=== PATIENT | female | born 1950 | race Caucasian/White ===

== ENCOUNTER 2020-11-29 13:48 | Outpatient (CLI) | payer MEDICARE, SELFPAY ==
[2020-11-29] MEDS: Acetaminophen 325 MG Tablet 650 MG PO (14:12)
[2020-11-29] MEDS: 0.9% Saline Lock 10 ML Syringe IV (14:12)
[2020-11-29 14:15] VITALS: BP 138/75; PULSE 102; RESP 16; TEMP 38.3; O2SAT 91; BMI 35.9
[2020-11-29 15:11] VITALS: BP 137/74; PULSE 91; RESP 20; TEMP 37.3; O2SAT 88
[2020-11-29 15:15] VITALS: BP 135/70; PULSE 90; RESP 20; TEMP 37.3; O2SAT 88
== END 2020-11-29 15:15 | disposition home or self-care (01) ==
LOC: MS3OUT 13:50 → MS3 13:52
PROVIDERS: Referring Provider Nurse Practitioner Adult Health; Visit Provider Nurse Practitioner Adult Health
DX: U07.1 COVID-19 (principal)
CPT/HCPCS: J7050; M0243; A4216; Q0244

== ENCOUNTER 2020-11-29 15:27 | Emergency (ER) | payer MEDICARE, OTHER, SELFPAY ==
[2020-11-29 15:28] VITALS: BP 124/82; PULSE 93; RESP 24; TEMP 37.5; O2SAT 88; BMI 35.9
--- NOTE | 2020-11-29 15:51 | CT_ITS ---
STUDY: CTA CHEST REASON FOR EXAM: Female, 70 years old. Acute substernal chest pain RADIATION DOSAGE (If Supplied By Facility): CTDIvol = ( 11.34 ) mGy, DLP = ( 456.63 ) mGycm TECHNIQUE: The examination was performed with the intravenous administration of IV 100mL Isovue-370. Post-processing of the angiographic images was performed, with multiplanar reformation and 3D reconstruction. Individualized dose optimization techniques were used for this CT. COMPARISON: None. FINDINGS: There is enlargement of the right thyroid lobe. Normal enhancement of the main pulmonary artery and right and left pulmonary arteries. Normal enhancement of the bilateral peripheral pulmonary arteries. There is no demonstrated pulmonary embolism. Normal thoracic aorta and visualized great vessels. There is no demonstrated aortic dissection. Normal heart and pericardium. Normal mediastinum. Normal hilar regions. There is peribronchial thickening. The lungs are well expanded. Chronic interstitial changes in both lung hubbard with diffuse interstitial and airspace opacifications predominantly in the periphery of both lung hubbard. This pattern of opacification is most consistent with and suspicious for Covid pneumonia. Normal pleura. Normal chest wall structures. There are degenerative changes of thoracic spine. Limited cuts through the upper abdomen show simple hepatic and right renal cysts, no specific follow-up needed CT/CTA Chest W/WO Contrast IMPRESSION: No demonstrated PE, or thoracic aortic aneurysm or dissection Diffuse interstitial and airspace opacifications predominantly in the periphery of both lung hubbard suspicious for Covid. Chronic bronchitis No suspicious adenopathy No pleural or pericardial effusions Degenerative bony changes Electronically Signed: Jaskaran Kim MD at 17:24 EDT , Service support ,
[2020-11-29 16:18] LABS: Absolute Lymphocyte Count 0.69 X10^3/uL (0.83-4.51); Absolute Neutrophil Count 3.1 X10^3/uL (2.0-7.7); Basophil# 0.02 X10^3/uL; Basophil% 0.5 % (0-1); Hematocrit 43.6 % (37-47); Hemoglobin 14.6 g/dL (12.0-15.0); Lymphocyte # 0.69 X10^3/ul (0.83-4.51); Mean Corp Hgb Conc 33.5 g/dL (32-36); Mean Corpuscular Volume 86.7 fL (81-99); Mean Platelet Vol. 10.1 fl (6.2-12.0); Monocyte# 0.23 X10^3/uL; Monocyte% 5.7 % (0-10); NRBC Flagged by Analyzer 0 % (0-5); Neutrophil # 3.11 X10^3/uL (2.7-7.7); Neutrophil % 76.6 % (47-70); Platelet Count 158 K/mm3 (150-450); RBC Distribution Width CV 13.1 % (11.6-14.6); Red Blood Count 5.03 M/mm3 (4.2-5.4); White Blood Count 4.1 K/mm3 (4.4-11.0)
[2020-11-29 16:23] VITALS: O2SAT 92
[2020-11-29 16:51] LABS: Anion Gap 8 (5-15); BUN 10 mg/dL (7-18); BUN/Creat Ratio 12.9 RATIO (10-20); Calcium,Total 8.4 mg/dL (8.5-10.1); Chloride 100 mmol/L (98-107); Creatinine, Serum 0.78 mg/dL (0.55-1.02); EST Glomerular Filtration Rate 78 mL/min (>60); Est Glom Filt Rate - Afr Amer 94 mL/min (>60); Estimated Creatinine Clearance 40.07 ml/min; Glucose 123 mg/dL (74-106); Potassium 3.2 mmol/L (3.5-5.1); Sodium Level 137 mmol/L (136-145)
--- NOTE | 2020-11-29 17:08 | ED.VIS.DYS ---
HPI History of Present Illness Chief Complaint: Shortness of Breath Informant: patient Narrative Narrative: Patient sent down from [facility] for hypoxia pulse ox 88%. Diagnosed yesterday in [place]. He reports having symptoms for a week. States nonproductive cough headaches. Denies fevers. Denies vomiting or diarrhea. Denies loss of taste or smell. Patient not vaccinated. Denies sick contacts. No Covid infections in the past. Denies any history of asthma or COPD. Denies tobacco history. States history of cardiac stents few years ago. Takes medications for blood pressure and cholesterol. Denies diabetes. Prior similar symptoms: No PFSH PFSH Medical History (Updated 11/29/20 @ 18:[address] Huy Arredondo DO) Acute asthma Heart attack Hypertension Home Medications dexamethasone [Decadron] 6 mg PO DAILY #9 tab 11/29/20 [Rx Last Taken Unknown] Allergy/AdvReac Type Severity Reaction Status Date / Time piroxicam [From Feldene] Allergy Severe throat Verified 11/29/20 15:31 closing nitrofurantoin Allergy Intermediate lightheaded Verified 11/29/20 15:31 [From Macrodantin] silicone Allergy Intermediate burning Verified 11/29/20 15:31 skin Sulfa (Sulfonamide Allergy Intermediate bruising Verified 11/29/20 15:31 Antibiotics) Tetracyclines Allergy Intermediate abdominal Verified 11/29/20 15:31 pain Penicillins AdvReac Mild heartburn Verified 11/29/20 15:31 Surgical History (Updated 11/29/20 @ 17:35 by Radha Mcfarland) History of tubal ligation Hx of tonsillectomy Social History Smoking Status: Never smoker ROS ROS ED Constitutional Constitutional ED: Denies chills, fever(s) or sweats Eyes Eyes: Denies change in vision ENT ENT ED: Denies dysphagia or sore throat Cardiovascular Cardiovascular: Denies chest pain, leg edema, palpitations or racing heartbeat Respiratory/Chest Respiratory/Chest: Reports cough and dyspnea; Denies dyspnea on exertion Gastrointestinal Gastrointestinal: Denies abdominal pain, diarrhea, nausea or vomiting Genitourinary Genitourinary ED: Denies dysuria, hematuria or urinary frequency Musculoskeletal Musculoskeletal: Denies back pain, extremity pain or neck pain Integumentary Denies rash or wounds Neurologic Neurologic: Denies headache(s), paresthesias or weakness EXAM Physical Exam Const Vital Signs: 11/29/20 15:28 11/29/20 16:23 11/29/20 18:48 Temperature 99.5 F H Temperature Source Temporal Pulse Rate 93 98 Respiratory Rate 24 H 16 Respiratory Effort Normal Non-Labored Respiratory Depth Normal Respiratory Pattern Normal Blood Pressure 124/82 H Blood Pressure Mean 96 Pulse Ox 88 94 Pulse Ox [AMBULATING on Room Air] Pulse Ox [AMBULATING with Oxygen #1] Pulse Ox [At REST on Room Air] Oxygen Delivery Method Room Air Nasal Cannula Nasal Cannula Oxygen Flow Rate (L/min) 2 2 Oxygen Flow Rate (L/min) [AMBULATING with Oxygen #1] 11/29/20 19:12 11/29/20 20:24 Temperature Temperature Source Pulse Rate 79 Respiratory Rate 22 H Respiratory Effort Respiratory Depth Respiratory Pattern Blood Pressure 130/60 H Blood Pressure Mean Pulse Ox 93 Pulse Ox [AMBULATING on Room Air] 85 Pulse Ox [AMBULATING with Oxygen #1] 93 Pulse Ox [At REST on Room Air] 88 Oxygen Delivery Method Oxygen Flow Rate (L/min) Oxygen Flow Rate (L/min) [AMBULATING with Oxygen #1] 2 Positive well nourished and well developed Constitutional Narrative: Currently on nasal cannula 2 L 96%. No respiratory distress. General Appearance ED: well developed and NAD HEENT Reports moist mucous membranes normocephalic and atraumatic Eyes PERRL, EOMs intact bilaterally and conjunctivae normal General Eye ED: Yes normal appearance of both eyes Neck no lymphadenopathy and supple General: Negative for tenderness Chest Wall Chest: Negative for tenderness Resp normal respiratory effort and normal air movement Effort and Inspection: symmetric chest movement; Negative for respiratory distress Cardio regular rate, regular rhythm and no murmurs Peripheral Pulses: pulses 2+ throughout GI normal to inspection, nondistended, normoactive bowel sounds and non-tender Palpation: Negative for guarding or rebound tenderness present Back/Spine no CVA tenderness and no thoracic nor lumbar tenderness Extremity normal to inspection General Extremety ED: Negative for edema or tenderness General Extremity: Negative for edema Neuro oriented x3 and no sensory deficits noted Sensorium / Orientation: awake and alert Skin no rashes or lesions noted and no wounds MDM MDM MDM Narrative Medical decision making narrative: Patient nontoxic states very mild dyspnea nonproductive cough. She is hypoxic 88%. She is Covid positive, with cardiac stent history, will rule out PE due to hypoxia. Patient started on Decadron. Currently on day 7 of symptoms. Positive testing from forms that were scanned into the system from [facility]. This was results from yesterday. Labs are stable, except noted potassium 3.2. This was orally replaced. CT chest obtained negative for PE. There is Covid pneumonia changes. She is stable on 2 L of oxygen. She is started on Decadron. Patient would like to go home. Patient is set up for oxygen. During process of setting oxygen, hospitalist did call seen the patient was hypoxic, discussed that she would be a candidate for antiviral treatment and that would have to be done as an inpatient. I discussed this with the patient, she declines antiviral treatment. Continue plan of care with oxygen with outpatient follow-up. Discussed return precautions with patient. Lab Data Labs: Laboratory Results - last 24 hr 11/29/20 11/29/20 16:12 16:12 WBC 4.1 L RBC 5.03 Hgb 14.6 Hct 43.6 MCV 86.7 MCH 29.0 MCHC 33.5 RDW Std Deviation 41.0 RDW Coeff of Enoch 13.1 Plt Count 158 MPV 10.1 Immature Gran % (Auto) 0.200 Neut % (Auto) 76.6 H Lymph % (Auto) 17.0 L Hopkins % (Auto) 5.7 Eos % (Auto) 0.0 Baso % (Auto) 0.5 Absolute Neuts (auto) 3.1 Absolute Lymphs (auto) 0.69 L Nucleated RBC % 0 Sodium 137 Potassium 3.2 L Chloride 100 Carbon Dioxide 29.0 Anion Gap 8 BUN 10 Creatinine 0.78 Estim Creat Clear Calc 40.07 Est GFR (MDRD) Af Amer 94 Est GFR (MDRD) Non-Af 78 BUN/Creatinine Ratio 12.9 Glucose 123 H Calcium 8.4 L Radiography Diagnostic Testing: Clinical Impression(s) from Imaging Studies Chest CTA 11/29/20 15:51 IMPRESSION: No demonstrated PE, or thoracic aortic aneurysm or dissection Diffuse interstitial and airspace opacifications predominantly in the periphery of both lung hubbard suspicious for Covid. Chronic bronchitis No suspicious adenopathy No pleural or pericardial effusions Degenerative bony changes Electronically Signed: Jaskaran Kim MD at 17:24 EDT , Service support , Discharge Plan Triage Chief Complaint: Shortness of Breath ED Provider: Huy Arredondo Dx/Rx/DC Orders Clinical Impression: COVID-19, Hypoxia, Hypokalemia Instructions: Coronavirus Disease 2019 (COVID-19): Caring for Yourself or Others Prescriptions: New dexamethasone [Decadron] 6 mg tablet 6 mg PO DAILY Qty: 9 RF: 0 Primary Care Provider: Martha Calix NP Referrals: Martha Calix NP, DEPARTMENT HELPER-C [Primary Care Provider] - Activity Restrictions/Additional Instructions: Take steroids as prescribed. Continue your home oxygen. Monitor your pulse ox if needing more than 4 L of oxygen and pulse ox is less than 88 return for reevaluation. Disposition Disposition: Home, Self Care Discharge Date/Time: 11/29/20 20:24
[2020-11-29] MEDS: dexAMETHasone 4 MG Tablet 6 MG PO (18:03)
[2020-11-29] MEDS: Potassium Chloride Oral Tablet 20 MEQ 40 MEQ PO (18:04)
[2020-11-29 18:48] VITALS: PULSE 98; RESP 16; O2SAT 94
--- NOTE | 2020-11-29 18:51 | HP.PCM.HOS_ITS ---
HPI - General General Date of Admission: 11/29/20 Date of Service: 11/29/20 Chief Complaint: Worsening dyspnea, hypoxia, COVID +, sent from [facility] clinic. HPI Narrative The patient is a 70 y/o F w/ PMHx: HTN, Obesity, Asthma, CAD s/p PCI with COVID sxs onset 11/20/20 including fatigue, malaise, decreased intake, cough, dyspnea with positive COVID-19 testing on 11/28/20 in [place], unvaccinated status, who presents to the [facility] ED on 11/29/20 following Monoclonal antibody treatment secondary to increased dyspnea with hypoxia noted 87-88% on RA. Work-up in the ED included T-max 100.9, heart rate 102, BP 138/75, respiratory rate 16-24, 88% on room air at rest, CBC with WC 4.1, hemoglobin 14.6, platelet 158 with lymphopenia, BMP with potassium 3.2, glucose 123, CTPA w/ no PE or thoracic aortic aneurysm or dissection, diffuse interstitial and airspace opacifications predominantly in the periphery of both lung hubbard, chronic bronchitis, degenerative bony changes. #1. Acute Hypoxia secondary to Acute Bilateral Pneumonia secondary to Acute Viral Syndrome, COVID-19: Will admit to the [facility] telemetry, will maintain on precautions given hypoxia patient would be considered severe COVID presentation, will maintain on oxygen with wean as tolerated to room air, PRN albuterol, HOB, IS parameters w/ pending sputum cultures, respiratory viral panel and urine antigens, will obtain D-dimer, procalcitonin, CRP, CPK, Ferritin, hepatic prof ile, LDH, trop and BNP, continue supportive care including q 2 hour turning including prone given no prone bed availability and judicious hydration, closely monitor for worsening status for ARDS and multiorgan failure, will initiate and continue IV decadron x 10 doses, given presentation patient is day #10 of COVID sxs thus will also initiate IV remdesivir but defer to discretion of Infectious disease. #2. Hypokalemia: Admission K+ 3.2, magnesium level requested, supplementation given, repeat level in AM. #3. Hyperglycemia, mild: Glucose 123, likely stress response and recent steroids started 11/28/2020, will repeat CMP in AM. #4. CAD: s/p prior PCI, will maintain on asa, not on BB or ACEI nor statin therapy, currently on norvasc and HCTZ, will encourage strongly follow-up with their medication care manager. #5. Chronic asthma: Patient not on any routine inhalers, will have as needed albuterol, encourage head of bed and I-S #6. Hypertension: Continue home regimen including amlodipine, hy drochlorothiazide with hold parameters as needed, PRN hydralazine. #7. Obesity: Weight loss and lifestyle changes encouraged. #8. DVT prophylaxis: SCDs, Lovenox. [facility] Medical History (Updated 11/29/20 @ 18:[address] Huy Arredondo DO) Acute asthma Heart attack Hypertension Home Medications dexamethasone [Decadron] 6 mg PO DAILY #9 tab 11/29/20 [Rx Last Taken Unknown] Allergy/AdvReac Type Severity Reaction Status Date / Time piroxicam [From Feldene] Allergy Severe throat Verified 11/29/20 15:31 closing nitrofurantoin Allergy Intermediate lightheaded Verified 11/29/20 15:31 [From Macrodantin] silicone Allergy Intermediate burning Verified 11/29/20 15:31 skin Sulfa (Sulfonamide Allergy Intermediate bruising Verified 11/29/20 15:31 Antibiotics) Tetracyclines Allergy Intermediate abdominal Verified 11/29/20 15:31 pain Penicillins AdvReac Mild heartburn Verified 11/29/20 15:31 Surgical History (Updated 11/29/20 @ 17:35 by Radha Mcfarland) History of tubal ligation Hx of tonsillectomy Social History Smoking Status: Never smoker Vital Signs Vital Signs Vital Signs: 11/29/20 15:28 11/29/20 16:23 11/29/20 18:48 Temperature 99.5 F H Temperature Source Temporal Pulse Rate 93 98 Respiratory Rate 24 H 16 Respiratory Effort Normal Non-Labored Respiratory Depth Normal Respiratory Pattern Normal Blood Pressure 124/82 H Blood Pressure Mean 96 Pulse Ox 88 94 Oxygen Delivery Method Room Air Nasal Cannula Nasal Cannula Oxygen Flow Rate (L/min) 2 2 Weight Weight: 190 lb Body Mass Index (BMI) 35.9 Results Lab / Micro Data Result Diagrams: 11/29/20 16:12 11/29/20 16:12 Labs: Laboratory Results - last 24 hr 11/29/20 16:12: WBC 4.1 L, RBC 5.03, Hgb 14.6, Hct 43.6, MCV 86.7, MCH 29.0, MCHC 33.5, RDW Std Deviation 41.0, RDW Coeff of Enoch 13.1, Plt Count 158, MPV 10.1, Immature Gran % (Auto) 0.200, Neut % (Auto) 76.6 H, Lymph % (Auto) 17.0 L, Heard % (Auto) 5.7, Eos % (Auto) 0.0, Baso % (Auto) 0.5, Absolute Neuts (auto) 3.1, Absolute Lymphs (auto) 0.69 L, Nucleated RBC % 0 11/29/20 16:12: Sodium 137, Potassium 3.2 L, Chloride 100, Carbon Dioxide 29.0, Anion Gap 8, BUN 10, Creatinine 0.78, Estim Creat Clear Calc 40.07, Est GFR (MDRD) Af Amer 94, Est GFR (MDRD) Non-Af 78, BUN/Creatinine Ratio 12.9, Glucose 123 H, Calcium 8.4 L Radiology Impression Chest CTA 11/29/20 15:51 IMPRESSION: No demonstrated PE, or thoracic aortic aneurysm or dissection Diffuse interstitial and airspace opacifications predominantly in the periphery of both lung hubbard suspicious for Covid. Chronic bronchitis No suspicious adenopathy No pleural or pericardial effusions Degenerative bony changes Electronically Signed: Jaskaran Kim MD at 17:24 EDT , Service support ,
[2020-11-29 19:12] VITALS: O2SAT 85; O2SAT 88; O2SAT 93
[2020-11-29 20:24] VITALS: BP 130/60; PULSE 79; RESP 22; O2SAT 93
--- NOTE | 2020-11-30 15:45 | CASEMGMT ---
[facility] ED COVID Home O2 Follow-up: This [facility] contacted pt via phone for follow-up to home O2 set-up. Pt states she is feeling pretty well and reports her PO to be above 90%. Pt is currently wearing O2 at 4l/min at their PCP's instruction. Pt denies any difficulty breathing. Pt's daughter also on speaker phone and states pt's appetite has been poor but they are trying to find foods that sound good to pt. Pt is taking the decadron as prescribed by pt's PCP. Pt reports not receiving the decadron ordered by the ED physician and questioned pharmacy it was sent to. Reviewed the [facility] location that the prescription was sent to but also instructed pt that if she is taking the prescription her PCP ordered she should not also take the ED prescription. Pt expressed understanding. Pt and daughter state they did speak with the PCP today and had a phone visit. Pt has been ambulating around the home without difficulty and the family is quarantined from others. Pt and daughter state that they all have COVID and pt's is currently an inpt at [facility]. Pt and her daughter deny any further concerns or questions at this time. Blanca Cuello RN CM
--- NOTE | 2020-12-01 15:14 | CASEMGMT ---
RN CM ED COVID Home O2 Follow-up: This RN CM attempted to contact pt via phone. Voicemail for Julia Dima was received on the number listed as the pt's and the voicemail box was stated to be full. Blanca Cuello RN CM
--- NOTE | 2020-12-05 16:01 | CASEMGMT ---
[facility] ED COVID Home O2 Follow-up: This [facility] contacted pt via phone for continued follow-up. Pt's daughter Julia and answered and placed pt on speaker phone. Pt states she is feeling pretty good and stronger. Pt reports to be wearing her O2 at 3l/min and that her PO has been 92-95%. She has been in contact with her PCP but no specific appointment has been scheduled per the PCP. Pt denies any new concerns or questions. Will discontinue follow-up calls. Blanca Cuello RN CM
== END 2020-11-29 20:24 | disposition home or self-care (01) ==
PROVIDERS: Emergency Provider Emergency Medicine; PCP Nurse Practitioner Adult Health
DX: U07.1 COVID-19 (principal); R09.02 Hypoxemia; E87.6 Hypokalemia; I25.2 Old myocardial infarction; Z95.5 Presence of coronary angioplasty implant and graft
CPT/HCPCS: 71275; 80048; 85025; 99283; J7050; M0243; Q9967; A4216; Q0244